=== PATIENT | male | born 1960 | race Caucasian/White ===

== ENCOUNTER 2021-01-05 20:41 | Inpatient (IN) | payer OTHER, SELFPAY ==
[2021-01-05] MEDS ORDERED: methylPREDNISolone Sod Succ/PF 125 MG/2 ML VIAL ONE (21:21)
[2021-01-05] MEDS ORDERED: Dexamethasone 10 MG/ML VIAL ONE (21:49)
[2021-01-05 22:56] LABS: #Basophils 0.1 thou/uL (0.0-0.2); #Eosinphils 0.1 thou/uL (0.0-0.7); #Monocytes 0.6 thou/uL (0.11-0.59); #Neutrophils 9.1 thou/uL (1.40-6.50); %Basophils 1.2 % (0.0-1.0); %Eosinophils 0.6 % (0.0-10.0); %Lymphocytes 9.1 % (21.0-51.0); %Monocytes 5.4 % (0.0-10.0); %Neutrophils 83.7 % (42.0-75.0); Hemoglobin 15.6 g/dL (14.0-18.0); Mean Corpuscular HGB CONC 34.4 g/dL (32.0-36.0); Mean Corpuscular Hemoglobin 32.8 pg (27.0-31.0); Mean Corpuscular Volume 95.5 fL (78.0-98.0); Mean Platelet Volume 6.8 fL (7.4-10.4); Platelet Count 208 thou/uL (130-400); RBC Distribution Width 12.7 % (11.5-14.5); Red Blood Cell (RBC) Count 4.77 mill/uL (4.70-6.10); White Blood Cell (WBC) Count 10.9 thou/uL (4.8-10.8)
[2021-01-05 23:16] LABS: ALT (SGPT) 22 U/L (8-55); AST (SGOT) 21 U/L (5-34); Albumin 3.7 g/dL (3.5-5.0); Alkaline Phosphatase 69 U/L (40-110); Anion Gap 16 mmol/L (10-20); BUN (Urea Nitrogen) 15 mg/dL (8.4-25.7); Bilirubin, Total 0.5 mg/dL (0.2-1.2); Calc. Creatinine Clearance 0 mL/min (70-130); Calcium 8.8 mg/dL (7.8-10.44); Carbon Dioxide 23 mmol/L (22-29); Chloride 98 mmol/L (98-107); Glucose 102 mg/dL (70-105); Potassium 3.7 mmol/L (3.5-5.1); Protein, Total 6.7 g/dL (6.0-8.3); Sodium 133 mmol/L (136-145)
[2021-01-05] MEDS ORDERED: Ondansetron PF 4 MG/2 ML Vial IVP PRN (23:30)
[2021-01-05] MEDS ORDERED: hydrALAZINE 20 MG/ML VIAL SLOW IVP PRN (23:31)
[2021-01-06 00:03] LABS: SARS-CoV-2 NAA Rapid Test Not Detected (NotDetected)
[2021-01-06 01:13] VITALS: BMI 29.6
[2021-01-06 03:44] LABS: #Lymphocytes 0.4 thou/uL (1.20-3.40); #Neutrophils 9.9 thou/uL (1.40-6.50); %Eosinophils 0.4 % (0.0-10.0); %Lymphocytes 3.8 % (21.0-51.0); %Monocytes 0.4 % (0.0-10.0); %Neutrophils 95.4 % (42.0-75.0); Hemoglobin 15.6 g/dL (14.0-18.0); Mean Corpuscular HGB CONC 32.6 g/dL (32.0-36.0); Mean Corpuscular Hemoglobin 31.1 pg (27.0-31.0); Mean Corpuscular Volume 95.2 fL (78.0-98.0); Platelet Count 204 thou/uL (130-400); RBC Distribution Width 12.7 % (11.5-14.5); Red Blood Cell (RBC) Count 5.03 mill/uL (4.70-6.10); White Blood Cell (WBC) Count 10.3 thou/uL (4.8-10.8)
[2021-01-06 04:03] LABS: Anion Gap 18 mmol/L (10-20); BUN (Urea Nitrogen) 15 mg/dL (8.4-25.7); Calc. Creatinine Clearance 110 mL/min (70-130); Carbon Dioxide 22 mmol/L (22-29); Chloride 99 mmol/L (98-107); Glucose 170 mg/dL (70-105); Potassium 3.8 mmol/L (3.5-5.1); Sodium 135 mmol/L (136-145)
[2021-01-06] MEDS ORDERED: Sodium Chloride 0.9% 1,000 ML IV SCH (07:15)
[2021-01-06] MEDS ORDERED: Pantoprazole 40 MG VIAL IVP SCH (09:00)
[2021-01-06] MEDS ORDERED: Famotidine/PF 20 mg/2ml Vial SLOW IVP SCH (09:00)
[2021-01-06] MEDS: diphenhydrAMINE 50 MG/ML VIAL IVP SCH ×2 (09:12→16:29)
[2021-01-06] MEDS ORDERED: Verapamil 120 MG TAB PO SCH ×2 (10:00→21:00)
[2021-01-06] MEDS: Hydrocortisone Sod Succ/PF 100 mg/2 ml Vial IVP SCH ×2 (11:42→16:29)
[2021-01-06 12:04] VITALS: TEMP 98.3
[2021-01-06 14:43] VITALS: BP 175/99
[2021-01-06] MEDS ORDERED: cloNIDine 0.1 MG TAB PO SCH (15:00)
[2021-01-06] MEDS ORDERED: FLU VACC QS2020-21(6MOS UP)/PF 60 MCG/0.5 ML SYRINGE IM ONE (21:00)
== END 2021-01-06 16:55 | disposition home or self-care (01) | DRG 916 ==
LOC: ERS 20:41 → CCU 22:37
PROVIDERS: ADMIT Internal Medicine; ATTEND Internal Medicine
PROC: 0CJS8ZZ Inspection of Larynx, Via Natural or Artificial Opening Endoscopic (ICD-10-PCS; principal; 2021-01-05)
DX: T78.3XXA Angioneurotic edema, initial encounter (principal); Z20.822 Contact with and (suspected) exposure to COVID-19; F41.9 Anxiety disorder, unspecified; I10 Essential (primary) hypertension; T46.4X5A Adverse effect of angiotensin-converting-enzyme inhibitors, initial encounter; Z90.49 Acquired absence of other specified parts of digestive tract; Z82.49 Family history of ischemic heart disease and other diseases of the circulatory system; Z79.899 Other long term (current) drug therapy
CPT/HCPCS: 36415; 80048; 80053; 85025; 86850; 86900; 86901; 96374; 96375; C9113; J0360; J1100; J1200; J1720; J2930; S0028; U0002

== ENCOUNTER 2024-01-04 16:17 | Observation (INO) | payer MEDICAID, SELFPAY ==
[2024-01-04 16:45] LABS: #Basophils 0.1 thou/uL (0.0-0.2); #Monocytes 1.1 thou/uL (0.11-0.59); #Neutrophils 10.5 thou/uL (1.40-6.50); %Basophils 0.7 % (0.0-1.0); %Eosinophils 0.1 % (0.0-10.0); %Lymphocytes 13.6 % (21.0-51.0); Hematocrit 49.4 % (42.0-52.0); Hemoglobin 17.7 g/dL (14.0-18.0); Mean Corpuscular HGB CONC 35.8 g/dL (32.0-36.0); Mean Corpuscular Hemoglobin 32.8 pg (27.0-31.0); Mean Corpuscular Volume 91.5 fl (78.0-98.0); Mean Platelet Volume 9.3 fL (7.4-10.4); Platelet Count 253 10x3/uL (130-400); RBC Distribution Width 12.1 % (11.5-14.5); White Blood Cell (WBC) Count 13.6 10x3/uL (4.8-10.8)
[2024-01-04 17:02] LABS: ALT (SGPT) 27 U/L (8-55); AST (SGOT) 28 U/L (5-34); Albumin 4.8 g/dL (3.4-4.8); Alkaline Phosphatase 99 U/L (40-110); Anion Gap 18 mmol/L (10-20); BUN (Urea Nitrogen) 13 mg/dL (8.4-25.7); Calc. Creatinine Clearance 0 mL/min (70-130); Carbon Dioxide 19 mmol/L (23-31); Chloride 100 mmol/L (98-107); Estimated GFR 59; Globulin 3.3 g/dL (2.4-3.5); Glucose 103 mg/dL (80-115); Potassium 3.7 mmol/L (3.5-5.1); Protein, Total 8.1 g/dL (5.8-8.1); Sodium 133 mmol/L (136-145)
[2024-01-04] MEDS ORDERED: Nitroglycerin 0.4 MG TAB (25 Tab Bottle) ONE (17:27)
[2024-01-04] MEDS ORDERED: Aspirin Chewable 81 MG TAB ONE (17:27)
[2024-01-04] MEDS ORDERED: LORazepam 2 MG/ML SYR.(CARPUJECT) ONE (17:27)
[2024-01-04] MEDS ORDERED: chlordiazePOXIDE HCl 25 MG CAP ONE (19:09)
[2024-01-04] MEDS ORDERED: Ondansetron PF 4 MG/2 ML Vial IVP PRN (19:58)
[2024-01-04] MEDS ORDERED: Lorazepam 1 MG TAB PO PRN (19:58)
[2024-01-04] MEDS ORDERED: Ondansetron ODT 4 MG TAB PO PRN ×2 (19:58)
[2024-01-04] MEDS ORDERED: Lorazepam 2 MG/ML VIAL IM PRN (19:58)
[2024-01-04] MEDS ORDERED: Nitroglycerin 0.4 MG TAB (25 Tab Bottle) SL PRN (19:58)
[2024-01-04] MEDS ORDERED: Sodium Chloride 0.9% 1,000 ML IV SCH (20:00)
[2024-01-04] MEDS ORDERED: Electrolyte Replacement Protocol 1 EACH FS SCH (20:00)
[2024-01-04] MEDS ORDERED: Acetaminophen 325 MG TAB PO PRN (20:30)
[2024-01-04 20:45] LABS: #Basophils 0.1 thou/uL (0.0-0.2); #Monocytes 0.8 thou/uL (0.11-0.59); #Neutrophils 9.4 thou/uL (1.40-6.50); %Basophils 0.8 % (0.0-1.0); %Eosinophils 0.2 % (0.0-10.0); %Lymphocytes 13.3 % (21.0-51.0); %Monocytes 6.9 % (0.0-10.0); %Neutrophils 78.4 % (42.0-75.0); Hematocrit 44.8 % (42.0-52.0); Hemoglobin 15.7 g/dL (14.0-18.0); Mean Corpuscular Hemoglobin 32.1 pg (27.0-31.0); Mean Corpuscular Volume 91.6 fl (78.0-98.0); Mean Platelet Volume 9.1 fL (7.4-10.4); Platelet Count 219 10x3/uL (130-400); RBC Distribution Width 12.1 % (11.5-14.5); Red Blood Cell (RBC) Count 4.89 mill/uL (4.70-6.10); White Blood Cell (WBC) Count 11.9 10x3/uL (4.8-10.8)
[2024-01-04 21:03] LABS: Magnesium 1.9 mg/dL (1.6-2.6); Phosphorus 3.1 mg/dL (2.3-4.7)
[2024-01-04 21:06] LABS: Troponin I Less than 0.010 ng/mL (< 0.028)
[2024-01-04] MEDS: chlordiazePOXIDE HCl 25 MG CAP PO SCH (22:08)
[2024-01-04] MEDS: Multivit, Therapeutic 1 TAB PO SCH (22:08)
[2024-01-04] MEDS: Folic Acid 1 MG TAB PO SCH (22:09)
[2024-01-04] MEDS: Thiamine HCl 200 MG/2 ML VIAL SLOW IVP SCH (22:09)
[2024-01-04] MEDS: Heparin 5,000 UNITS/ML VIAL SC SCH (22:10)
[2024-01-04] MEDS: Famotidine 20 MG TAB PO SCH (22:10)
[2024-01-04] MEDS: Lorazepam 1 MG TAB PO SCH (22:10)
[2024-01-04] MEDS: Nitroglycerin 2% Ointment 1 INCH/1 GM Packet TOP SCH (22:11)
[2024-01-04] MEDS ORDERED: hydrALAZINE 20 MG/ML VIAL SLOW IVP PRN (23:11)
[2024-01-05] MEDS: Magnesium 2 GM/50 ML(in water) 2 GM in Premix 1 BAG IVPB SCH (00:04)
[2024-01-05 03:36] VITALS: BMI 31.4
[2024-01-05 04:13] LABS: Cardiac Risk 4.1 (Less than 4.5)
[2024-01-05 04:16] LABS: Troponin I Less than 0.010 ng/mL (< 0.028)
[2024-01-05 07:23] LABS: Bacteria/HPF None Seen HPF (None Seen); Bilirubin Negative (Negative); Blood, Urine Negative (Negative); CAUTI Indications for Culture Alt mental st,lethar; Clarity Clear (Clear); Glucose, Urine (Dipstick) Normal (Negative); Ketone, Urine Trace mg/dL (Negative); Leukocyte Negative Leu/uL (Negative); Nitrite Negative (Negative); Protein, Urine (Dipstick) 20 mg/dL (Neg-Trace); RBC/HPF None Seen HPF (0-3); Specific Gravity, Urine 1.022 (1.002-1.036); Squamous Epithelial 0-3 HPF (0-3); Urobilinogen 3 mg/dL (Less than 2); WBC/HPF 0-3 HPF (0-3)
[2024-01-05 07:24] LABS: Urine Culture Reflex No No
[2024-01-05 07:30] LABS: Amphetamine Not Detected (NotDetected); Barbiturates Screen Not Detected (NotDetected); Benzodiazepine Screen Detected (NotDetected); Cocaine Metabolite Screen Not Detected (NotDetected); Methadone Not Detected (NotDetected); Methamphetamine Not Detected (NotDetected); Opiate Screen Not Detected (NotDetected); Oxycodone Screen Not Detected (NotDetected); Phencyclidine (PCP) Not Detected (NotDetected); THC/Cannabinoid Screen Detected (NotDetected); Tricyclic Screen Not Detected (NotDetected)
[2024-01-05] MEDS ORDERED: ADENOSINE 60 MG/20 ML SDV ONE (10:29)
[2024-01-05] MEDS: cloNIDine 0.1 MG TAB PO SCH (12:27)
[2024-01-05] MEDS: Multivit, Therapeutic 1 TAB PO SCH (12:27)
[2024-01-05] MEDS: Verapamil 120 MG TAB PO SCH (12:27)
[2024-01-05] MEDS: Folic Acid 1 MG TAB PO SCH (12:29)
[2024-01-05 12:40] LABS: Anion Gap 17 mmol/L (10-20); BUN (Urea Nitrogen) 16 mg/dL (8.4-25.7); Calc. Creatinine Clearance 84 mL/min (70-130); Calcium 9.3 mg/dL (7.8-10.44); Carbon Dioxide 20 mmol/L (23-31); Chloride 101 mmol/L (98-107); Estimated GFR 70; Glucose 84 mg/dL (80-115); Potassium 3.7 mmol/L (3.5-5.1); Sodium 134 mmol/L (136-145)
[2024-01-05 12:50] VITALS: TEMP 98.6
[2024-01-05] MEDS: hydrOXYzine 25 MG TAB PO SCH (13:50)
[2024-01-05 14:14] VITALS: BP 159/92
[2024-01-05] MEDS ORDERED: Lorazepam 1 MG TAB PO PRN (19:58)
[2024-01-06] MEDS ORDERED: Lorazepam 1 MG TAB PO PRN (19:58)
[2024-01-07] MEDS ORDERED: Lorazepam 0.5 MG TAB PO PRN (19:58)
[2024-01-07] MEDS ORDERED: Thiamine 100 MG TAB PO SCH (20:00)
== END 2024-01-05 16:32 | disposition home or self-care (01) ==
LOC: ERS 16:17 → 2SW 20:13 → UNDODISOB 01-05 15:33
PROVIDERS: ADMIT Student in an Organized Health Care Education/Training Program; ATTEND Internal Medicine
DX: R00.2 Palpitations (principal); I16.0 Hypertensive urgency; I10 Essential (primary) hypertension; F10.99 Alcohol use, unspecified with unspecified alcohol-induced disorder; F41.9 Anxiety disorder, unspecified; R91.1 Solitary pulmonary nodule; Z88.8 Allergy status to other drugs, medicaments and biological substances; Z90.49 Acquired absence of other specified parts of digestive tract; Z79.82 Long term (current) use of aspirin; Z79.899 Other long term (current) drug therapy
CPT/HCPCS: 36415; 71045; 78452; 80048; 80053; 80061; 80306; 81001; 83735; 83880; 84100; 84443; 84484; 85025; 93005; 93017; 94760; 96372; 96374; 96375; A9502; G0378; J0153; J1644; J2060; J3411; J3475